=== PATIENT | female | born 1980 | race Caucasian/White ===

== ENCOUNTER 2018-10-11 09:46 | Day surgery (SDC) | payer BC ==
[~2018-10-11 09:46] MED LIST: DEXAMETHASONE SOD PHOSPHATE 10 MG/ML 1 ML VIAL IV ONE; HYDROmorphone 0.5 MG/0.5 ML SYRINGE IVP PRN; LACTATED RINGERS 1,000 ML IV SCH; MORPHINE SULFATE 2 MG/ML SYRINGE IV PRN; ONDANSETRON 4 MG/2 ML VIAL IVP ONE
[2018-10-11 10:15] VITALS: RESP 16; TEMP 98.7
[2018-10-11] MEDS ORDERED: LIDOCAINE 1% 20 ML VIAL (10MG/ML) FOR IV START INTRADERMA ONE (10:25)
[2018-10-11] MEDS ORDERED: PROPOFOL 10 MG/ML 20 ML VIAL IV ONE (11:01)
[2018-10-11] MEDS ORDERED: LIDOCAINE 1% INJ 10MG/ML (20 ML MDV) ONE (11:01)
--- NOTE | 2018-10-11 11:41 | P.PCN ---
Date of Procedure: 10/11/18 Procedure(s) Performed: BRIEF HISTORY: Patient is a 38-year-old, pleasant, female, scheduled for an upper endoscopy as a part of evaluation of prior history of gastric ulcer diagnosed a year ago. She was treated with Prilosec for H. pylori gastritis and possible peptic ulcer disease for few weeks and his symptoms resolved. She has occasional epigastric discomfort.. PROCEDURE PERFORMED: Esophagogastroduodenoscopy with biopsy. PREOPERATIVE DIAGNOSIS: Epigastric pain and prior history of possible peptic ulcer disease. IV sedation per anesthesia. PROCEDURE: After informed consent was obtained, the patient was brought into the endoscopy unit. IV sedation was administered by Anesthesia under continuous monitoring. Initially the Olympus GIF-140 video endoscope was inserted into the mouth. Esophagus intubated without any difficulty. It was gradually advanced into the stomach and duodenum and carefully examined. The bulb and the second part of the duodenum appeared normal. The scope at this time was withdrawn to the stomach, adequately insufflated with air, and upon careful examination, muc ruthann of the antrum had mild gastritis and biopsies were done from this area. No evidence of ulcerations seen. The, body, cardia and the fundus appeared normal. The scope was then withdrawn into the esophagus. The GE junction was located at 39 cm from the incisors. The esophagus appeared normal. There were no erosions or ulcerations seen and the patient tolerated the procedure well. IMPRESSION: 1. Mild antral gastritis. 2. No evidence of esophagitis or peptic ulcer disease. RECOMMENDATIONS: The findings of this examination were discussed with the patient as well as her family. She was advised to follow with the biopsy results.
[2018-10-11 12:00] VITALS: BP 102/69; PULSE 62
== END 2018-10-11 12:08 | disposition home or self-care (01) ==
LOC: ORWHC2ENDO 09:46
PROVIDERS: ATTEND Internal Medicine Gastroenterology
DX: K29.50 Unspecified chronic gastritis without bleeding (principal); Z87.11 Personal history of peptic ulcer disease; F17.210 Nicotine dependence, cigarettes, uncomplicated
CPT/HCPCS: 81025; 88305; 43239; J2001; J2704

== ENCOUNTER → 2021-06-23 | Outpatient (CLI) | payer BC ==
--- NOTE | 2021-06-27 11:22 | MM ---
Reason for exam: screening (asymptomatic). Baseline mammogram. Physical Findings: Nurse did not find any significant physical abnormalities on exam. MG Screening Mammo w CAD Bilateral CC and MLO view(s) were taken. The breast tissue is heterogeneously dense. This may lower the sensitivity of mammography. There is no discrete abnormality. ASSESSMENT: Negative, BI-RAD 1 RECOMMENDATION: Routine screening mammogram of both breasts in 1 year.
== END | disposition home or self-care (01) ==
LOC: RADMAMWWP 10:52
PROVIDERS: ATTEND Obstetrics & Gynecology
DX: Z12.31 Encounter for screening mammogram for malignant neoplasm of breast (principal)
CPT/HCPCS: 77067

== ENCOUNTER → 2022-06-27 | Outpatient (CLI) | payer BC ==
--- NOTE | 2022-06-28 17:06 | MM ---
Reason for Exam: Screening (asymptomatic). Last mammogram was performed 1 year(s) and 1 month(s) ago. Patient History: Menarche at age 13. First Full-Term at age 20. Last menstrual period: 05/29/2022 Risk Values: Dolores 5 year model risk: 0.4%. NCI Lifetime model risk: 7.3%. Prior Study Comparison: 06/23/2021 Bilateral Screening Mammogram, [facility]. Tissue Density: The breast tissue is heterogeneously dense. This may lower the sensitivity of mammography. Findings: Analyzed By CAD. Pattern appears symmetrical and stable. No significant interval change is evident. No suspicious groups of microcalcifications, spiculated or lobular masses, architectural distortion or other secondary signs of malignancy are mammographically apparent. Overall Assessment: Benign, BI-RAD 2 Management: Screening Mammogram of both breasts in 1 year. A negative mammogram report should not preclude additional follow up of suspicious palpable abnormalities. Patient should continue monthly self breast exam. A clinical breast exam by your physician is recommended on an annual basis and results should be correlated with mammographic findings. Electronically signed and approved by: Julian Jaeger D.O. Radiologis
== END | disposition home or self-care (01) ==
LOC: RADMAMWWP 07:47
PROVIDERS: ATTEND Obstetrics & Gynecology
DX: Z12.31 Encounter for screening mammogram for malignant neoplasm of breast (principal)
CPT/HCPCS: 77067

== ENCOUNTER → 2023-06-29 | Outpatient (CLI) | payer OTHER ==
--- NOTE | 2023-06-29 13:22 | MM ---
Reason for Exam: Screening (asymptomatic). Last screening mammogram was performed 12 month(s) ago. Patient History: Menarche at age 13. First Full-Term at age 20. Premenopausal. Last menstrual period: 06/23/2023 Risk Values: Dolores 5 year model risk: 0.5%. NCI Lifetime model risk: 7.2%. Prior Study Comparison: 06/23/2021 Bilateral Screening Mammogram, [facility]. 06/27/2022 Bilateral MG screening mammo w CAD, [facility]. Tissue Density: The breast tissue is heterogeneously dense. This may lower the sensitivity of mammography. Findings: Analyzed By CAD. There is no suspicious group of microcalcifications or new suspicious mass. Overall Assessment: Negative, BI-RAD 1 Management: Screening Mammogram of both breasts in [address] [facility] will attempt to contact patient to return for supplemental views and ultrasound if indicated. Patient should continue monthly self-breast exams. A clinical breast exam by your physician is recommended on an annual basis. This exam should not preclude additional follow-up of suspicious palpable abnormalities. Note on Dolores scores and lifetime risk: 1. A Dolores score greater than 3% is considered moderate risk. If this is the case, consider specialist referral to assess eligibility for a risk reducing agent. 2. If overall lifetime risk for the development of breast cancer is 20% or higher, the patient may qualify for future screening with alternating mammogram and breast MRI. Electronically signed and approved by: Juan José Swan DO
== END | disposition home or self-care (01) ==
LOC: RADMAMWWP 08:40
PROVIDERS: ATTEND Obstetrics & Gynecology
DX: Z12.31 Encounter for screening mammogram for malignant neoplasm of breast (principal)
CPT/HCPCS: 77067

== ENCOUNTER → 2023-07-12 | Outpatient (CLI) | payer OTHER ==
--- NOTE | 2023-07-12 15:48 | CT ---
EXAMINATION TYPE: CT ChestAbdPelvis wo con DATE OF EXAM: 07/12/2023 COMPARISON: NONE HISTORY: RLQ pain. Abnormal weight loss. Approx 23lbs x4mo. Solitary pulmonary nodule. CT DLP: 320.7 mGycm. Automated Exposure Control for Dose Reduction was Utilized. TECHNIQUE: CT scan of the thorax, abdomen and pelvis is performed with oral but without IV contrast. FINDINGS: Within the limitations of a noncontrast study, the following observations are made LUNGS: There is 4 x 3 mm left lower lobe pulmonary nodule axial image 36. No greater than 5 mm pulmon newton nodules. There is no pleural effusion or pneumothorax seen. The tracheobronchial tree is patent . MEDIASTINUM: There are no greater than 1 cm mediastinal lymph nodes. No cardiomegaly or pericardial effusion is seen. LIVER/GB: No significant abnormality is appreciated. PANCREAS: No significant abnormality is seen. SPLEEN: No significant abnormality is seen. ADRENALS: No significant abnormality is seen. KIDNEYS: Approximately 3.8 cm thin-walled cyst in the anterior aspect of the pancreas likely reflects exophytic simple renal cyst. Pancreatic etiology less likely but not entirely excluded BOWEL: Oral contrast extends to level of hepatic flexure. No abnormal small or large bowel dilatation . GENITAL ORGANS: Tiny amount free fluid in the pelvic cul-de-sac weight. LYMPH NODES: No greater than 1cm abdominal or pelvic lymph nodes are appreciated. OSSEOUS STRUCTURES: No significant abnormality is seen. OTHER: No significant additional abnormality is seen. IMPRESSION: 1. There is 4 x 3 mm left lower lobe pulmonary nodule. Lesion almost certainly benign due to size an d patient's age. Consider optional CT follow-up in 1 year time to reassess as per Fleischner Society recommendations. 2. There is 3.8 cm thin-walled cyst in the left mid abdomen likely simple cyst originating from the m id pole of the left kidney anteriorly. Cannot entirely exclude a pancreatic origin. Consider renal ul trasound follow-up to further evaluate and confirm. 3. Slightly suboptimal study without IV contrast. No obvious mass or suspicious adenopathy otherwise clearly seen.
== END | disposition home or self-care (01) ==
LOC: RADCTMAIN 12:28
PROVIDERS: ATTEND Family Medicine
DX: R19.07 Generalized intra-abdominal and pelvic swelling, mass and lump (principal); R10.31 Right lower quadrant pain; R91.1 Solitary pulmonary nodule
CPT/HCPCS: 71250; 74176

== ENCOUNTER → 2023-07-23 | Outpatient (CLI) | payer OTHER, BC ==
--- NOTE | 2023-07-23 16:42 | US ---
EXAMINATION TYPE: US thyroid st tissue head/neck DATE OF EXAM: 07/23/2023 COMPARISON: NONE CLINICAL INDICATION: Female, 43 years old with history of E04.9 NONTOXIC GOITER, UNSPECIFIED; goiter GLAND SIZE: Right Lobe: 5.0 x 1.5 x 1.6 cm Overall Parenchyma: homogeneous Left Lobe: 4.0 x 1.2 x 1.3 cm Overall Parenchyma: homogeneous Isthmus Thickness: .3 cm NODULES RIGHT: # of nodules measured on right: 0 LEFT: # of nodules measured on left: 0 ISTHMUS: # of nodules measured in the isthmus: 0 Bilateral neck scanned, no evidence of lymphadenopathy. IMPRESSION: No discrete abnormality appreciated. 2017 ACR TI-RADS LEVEL: *Highest TI-RADS level nodule reported
== END | disposition home or self-care (01) ==
LOC: RADUSWWP 15:23
PROVIDERS: ATTEND Family Medicine
DX: E04.9 Nontoxic goiter, unspecified (principal)
CPT/HCPCS: 76536

== ENCOUNTER → 2023-08-02 | Outpatient (CLI) | payer OTHER, BC ==
--- NOTE | 2023-08-02 14:25 | US ---
EXAMINATION TYPE: US kidneys/renal and bladder DATE OF EXAM: 08/02/2023 COMPARISON: CT 07/13/2023 CLINICAL INDICATION: Female, 43 years old with history of N28.9 DISORDER OF KIDNEY AND URETER, UNSPEC IFIED; Patient states that they saw cyst on left kidney on CT. No other pain or symptoms EXAM MEASUREMENTS: Right Kidney: 8.1 x 4.0 x 5.0 cm Left Kidney: 9.5 x 5.1 x 2.5 cm Slightly limited due to overlying gas Right Kidney: Measures slightly small. No hydronephrosis or masses seen as best visualized Left Kidney: There are two anechoic lesions seen mid left kidney 1: 3.6 x 4.0 x 2.9cm 2: 1.0 x 0.8 x 0.9cm Bladder: wnl Bilateral Jets seen: Yes IMPRESSION: Noted are 2 simple cysts left kidney.
== END | disposition home or self-care (01) ==
LOC: RADUSWWP 13:35
PROVIDERS: ATTEND Family Medicine
DX: N28.1 Cyst of kidney, acquired (principal)
CPT/HCPCS: 76770

== ENCOUNTER → 2024-07-02 | Outpatient (CLI) | payer OTHER ==
--- NOTE | 2024-07-02 08:20 | CT ---
EXAMINATION TYPE: CT chest wo con DATE OF EXAM: 07/02/2024 COMPARISON: 07/12/2023 HISTORY: 44-year-old female R91.1 Lung nodules TECHNIQUE: Contiguous axial scanning of the chest without IV contrast. Coronal/sagittal reconstructio ns performed. CT DLP: 140.90mGycm. Automatic exposure control utilized for a dose reduction. FINDINGS: Heart is normal size with trace anterior basilar pericardial effusion. Aorta normal caliber with conventional arch vessel branching anatomy. No thoracic lymphadenopathy by CT size criteria. Lungs show minimal to mild emphysematous change. No consolidation or pleural effusion. A 4 mm right lower lobe pulmonary nodule, axial image 31 remains unchanged suggesting a benign etiolo gy. We note that this was reported in the left lower lobe on the patient's 07/12/2023 CT report which was a side error. Visualized upper abdomen shows an anterior exophytic left renal cyst measuring up to 4.4 cm and moder ate stool burden. Bones: No osseous destructive process. IMPRESSION: 1. COPD with minimal to mild emphysema. 2. Stable 4 mm lower lobe pulmonary nodule suggesting a benign etiology. 3. Redemonstrated exophytic 4.4 cm left midpole renal cyst. [facility], , 07/02/2024 8:18 AM
== END | disposition home or self-care (01) ==
LOC: RADCTMAIN 07:23
PROVIDERS: ATTEND Family Medicine
DX: N28.1 Cyst of kidney, acquired (principal); J43.9 Emphysema, unspecified; R91.1 Solitary pulmonary nodule
CPT/HCPCS: 71250

== ENCOUNTER → 2024-07-02 | Outpatient (CLI) | payer OTHER ==
--- NOTE | 2024-07-02 10:01 | MM ---
Reason for Exam: Screening (asymptomatic). Last screening mammogram was performed 12 month(s) ago. Patient History: Menarche at age 13. First Full-Term at age 20. Premenopausal. Risk Values: Dolores 5 year model risk: 0.5%. NCI Lifetime model risk: 7.1%. Prior Study Comparison: 06/23/2021 Bilateral Screening Mammogram, [facility]. 06/27/2022 Bilateral MG screening mammo w CAD, [facility]. 06/29/2023 Bilateral MG screening mammo w CAD, [facility]. Tissue Density: The breasts are heterogeneously dense, which may obscure small masses. Findings: Analyzed By CAD. Right breast: There is no suspicious group of microcalcifications or new suspicious mass. Left breast: There is no suspicious group of microcalcifications or new suspicious mass. Overall Assessment: Negative, BI-RAD 1 Management: Screening Mammogram of both breasts in [address] [facility] will attempt to contact patient to return for supplemental views and ultrasound if indicated. Patient should continue monthly self-breast exams. A clinical breast exam by your physician is recommended on an annual basis. This exam should not preclude additional follow-up of suspicious palpable abnormalities. Note on Dolores scores and lifetime risk: 1. A Dolores score greater than 3% is considered moderate risk. If this is the case, consider specialist referral to assess eligibility for a risk reducing agent. 2. If overall lifetime risk for the development of breast cancer is 20% or higher, the patient may qualify for future screening with alternating mammogram and breast MRI. [facility], , 07/02/2024 9:58 AM. Electronically signed and approved by: Juan José Swan DO
== END | disposition home or self-care (01) ==
LOC: RADMAMWWP 07:06
PROVIDERS: ATTEND Obstetrics & Gynecology
DX: Z12.31 Encounter for screening mammogram for malignant neoplasm of breast (principal); R92.333 Mammographic heterogeneous density, bilateral breasts
CPT/HCPCS: 77067